=== PATIENT | female | born 1980 | race Caucasian/White ===

== ENCOUNTER 2017-06-30 04:59 | Day surgery (SDC) | payer BC, OTHER ==
[2017-06-23 15:29] VITALS: BMI 23.5
[~2017-06-30 04:59] MED LIST: FERRIC SUBSULFATE 500 ML BOTTLE TP ONE; IODINE/POTASSIUM IODIDE 5%/10% 14 ML BOTTLE NR ONE; ceFAZolin SODIUM 1 GM VIAL IVPB ONE
[2017-06-30] MEDS ORDERED: ceFAZolin SODIUM 1 GM VIAL ONE (07:20)
[2017-06-30] MEDS ORDERED: PROPOFOL 20 ML ONE ×2 (07:20)
[2017-06-30] MEDS ORDERED: MIDAZOLAM HCL 2 MG/2 ML SINGLE DOSE VIAL ONE (07:20)
[2017-06-30] MEDS ORDERED: SUCCINYLCHOLINE CHLORIDE 200 MG/10 ML VIAL ONE (07:20)
[2017-06-30] MEDS ORDERED: LIDOCAINE HCL/PF 2% SDV 5ML VIAL ONE (07:21)
[2017-06-30] MEDS ORDERED: LIDOCAINE HCL 2% JELLY (5 ML/TUBE) ONE (07:21)
[2017-06-30] MEDS ORDERED: DEXAMETHASONE SOD PHOSPHATE 4 MG/1 ML VIAL ONE ×2 (07:21→08:27)
[2017-06-30] MEDS ORDERED: KETOROLAC TROMETHAMINE 30 MG/1 ML VIAL ONE (07:21)
[2017-06-30] MEDS ORDERED: DESFLURANE GAS 240 ML BOTTLE IH ONE (07:36)
[2017-06-30] MEDS ORDERED: IBUPROFEN 800 MG/8 ML IJ IVPB PRN (08:06)
[2017-06-30] MEDS ORDERED: ACETAMINOPHEN 325 MG TABLET (FP) PO PRN (08:06)
--- NOTE | 2017-06-30 08:06 | HP ---
History & Physical Update - History History: No Change - Physical Physical: No Change - Assessment Assessment: No Change - Plan Plan: No Change (Cervical dysplasia - for LEEP cone biopsy)
[2017-06-30] MEDS ORDERED: LACTATED RINGERS SOLUTION 1,000 ML IV SCH (08:15)
[2017-06-30] MEDS ORDERED: FERRIC SUBSULFATE 500 ML BOTTLE TP ONE (08:26)
[2017-06-30 09:18] VITALS: TEMP 98
[2017-06-30] MEDS ORDERED: oxyCODONE HCL 5 MG TABLET PO PRN ×2 (09:41)
[2017-06-30] MEDS ORDERED: ONDANSETRON 4 MG/2 ML VIAL IVPUSH PRN (09:41)
[2017-06-30 11:09] VITALS: BP 111/61; PULSE 56
--- NOTE | 2017-06-30 13:13 | OP ---
Operative Note - Note: Operative Date: 06/30/17 ([id number]) Pre-Operative Diagnosis: Cervical dysplasia Operation: LEEP - cone biopsy Findings: normal female genital anatomy Post-Operative Diagnosis: Same as Pre-op Surgeon: Reema Banda Anesthesiologist/DIRECTOR OF STRATEGIC ALLIANCES: Calvin Diaz Anesthesia: MAC Specimens Removed: LEEP cone biopsy Estimated Blood Loss (mls): 5 Operative Report Dictated: Yes
--- NOTE | 2017-06-30 13:46 | OP ---
DATE OF OPERATION: 06/30/2017 PREOPERATIVE DIAGNOSIS: Cervical dysplasia. POSTOPERATIVE DIAGNOSIS: Cervical dysplasia. PROCEDURE: Loop electrosurgical excision procedure cone biopsy. SURGEON: Reema Rico MD ASSISTANTS: None. ANESTHESIA: MAC anesthesia administered by Dr. Diaz. COMPLICATIONS: None. SPECIMENS REMOVED: Include cervical cone biopsy marked at 12 o'clock position with a stitch. DISPOSITION: Stable to PACU. COUNTS: Sponge, needle, and instrument counts were correct at the end of the case. BRIEF HISTORY AND PROCEDURE: Patient is a 37-year-old female who had been diagnosed with high-grade cervical dysplasia in the office, was counseled on her options, and consented for a LEEP cone biopsy procedure. The patient was brought into [facility] on June 30, 2017. Consents for the procedure were confirmed. She was then taken back to the operating room where she was placed in the dorsal lithotomy position and prepped and draped in the usual sterile fashion. A hard time-out was performed. A speculum was placed inside the vagina. The cervix was easily visualized. Using a large LEEP loop, a LEEP cone biopsy specimen was removed in a single pass. The 12 o'clock position was marked with a stitch. The surgical bed was cauterized with rollerball cautery, and Monsels solution was applied. Hemostasis was achieved. All instruments were removed from the vagina. All sponge, needle and instrument counts were reported to be correct. The patient tolerated the procedure well and was recovering in stable condition in the PACU after the procedure. REEMA RICO DO /[id number] MTDD
--- NOTE | 2017-07-04 12:55 | PATH ---
Surgical Pathology Report Patient Name: AMRITA GARCIA [facility]. Rec. #: [id number] /Age/Gender: 1980 (Age: 37) / F Account: [id number] Location: [facility] SURGICAL Taken: 06/30/2017 Received: 06/30/2017 Reported: 07/04/2017 Physicians: Reema Banda M.D. Specimen(s) Received CERVICAL LEEP CONE BIOPSY Clinical History Cervical dysplasia Final Diagnosis CERVIX, LEEP CONE BIOPSY: CERVICAL SQUAMOUS AND ENDOCERVICAL MUCOSA WITH HIGH GRADE SQUAMOUS INTRAEPITHELIAL LESION (CERVICAL INTRAEPITHELIAL NEOPLASIA 3 /CIN3), PRESENT AT 6-9:00 QUADRANT. SURGICAL RESECTION MARGINS: NEGATIVE FOR DYSPLASIA. TRANSFORMATION ZONE: PRESENT. Electronically Signed Brant Garcia M.D. Gross Description Received in formalin labeled "LEEP cone biopsy" is a 2 cm in diameter annular portion of soft tissue, consistent with a cervical LEEP cone biopsy. There is a suture present marking the 12:00 aspect of the specimen, per the surgeon. The specimen is inked blue, serially sectioned and entirely and sequentially submitted in 4 cassettes as follows: 1-12:00 to 3:00; 2-3:00 to 6:00; 3-6:00 to 9:00; 4-9:00 to 12:00. /06/30/2017 [facility]06/30/2017
== END 2017-06-30 11:09 | disposition home or self-care (01) ==
LOC: JASU-SURG 04:59
PROVIDERS: ATTEND Obstetrics & Gynecology
PROC: 0UBC7ZX Excision of Cervix, Via Natural or Artificial Opening, Diagnostic (ICD-10-PCS; principal; 2017-06-30 08:00)
DX: D06.7 Carcinoma in situ of other parts of cervix (principal)
CPT/HCPCS: 84703; 88307-TC; 94760